=== PATIENT | female | born 1965 | race Caucasian/White ===

== ENCOUNTER 2024-01-04 05:41 | Day surgery (SDC) | payer MEDICAID ==
[2024-01-04] VITALS (14 sets, daily range): BP systolic 92–117; BP diastolic 53–74; PULSE 51–88; TEMP 97.3–97.9
[~2024-01-04] VITALS: Ht 162.6 cm; Wt 101.9 kg
[~2024-01-04 05:41] MED LIST: LR 1,000 ML IV SCH
[2024-01-04] MEDS ORDERED: Pregabalin 150 MG CAP PREOP X1 PO SCH (06:00)
[2024-01-04] MEDS ORDERED: Celecoxib 400 MG PREOP X1 PO SCH (06:00)
[2024-01-04] MEDS ORDERED: oxyCODONE ER (12-HR) 20 MG TAB PREOP X1 PO SCH (06:00)
[2024-01-04] MEDS ORDERED: Tranexamic Acid 1,000 MG/10 ML VIAL ONE (06:31)
[2024-01-04] MEDS ORDERED: Lidocaine PF 2% (20 MG/ML) 5 ML VIAL ONE (06:31)
[2024-01-04] MEDS ORDERED: NS 10 ML IV ONE (06:31)
[2024-01-04] MEDS ORDERED: Ondansetron 4 MG/2 ML VIAL ONE (06:31)
[2024-01-04] MEDS ORDERED: dexAMETHasone 10 MG/ML VIAL ONE (06:31)
[2024-01-04] MEDS ORDERED: fentaNYL 50 MCG/ML 2 ML VIAL ONE (06:32)
[2024-01-04] MEDS ORDERED: Midazolam 2 MG/2 ML VIAL ONE (06:32)
[2024-01-04] MEDS ORDERED: FLEXERIL 1010 MG/TAB PO (06:53)
[2024-01-04] MEDS ORDERED: CYMBALTA 30MG30 MG PO (06:54)
[2024-01-04] MEDS ORDERED: LYRICA 50MG CAP50 MG PO (06:54)
[2024-01-04] MEDS ORDERED: TOPAMAX 100MG100 M1 PO (06:54)
[2024-01-04] MEDS ORDERED: VOLTAREN 50MG T50 MG PO (06:55)
[2024-01-04] MEDS ORDERED: PROAIR HFA0.09 MG/AC IH (06:55)
[2024-01-04] MEDS ORDERED: FLONASE NASAL S16 GM NS (06:56)
[2024-01-04] MEDS ORDERED: FOLIC ACID0.4 MG PO (06:57)
[2024-01-04] MEDS ORDERED: VITAMIN C500 MG PO (06:57)
[2024-01-04] MEDS ORDERED: IRON TABLETS325 MG PO (06:58)
[2024-01-04] MEDS ORDERED: Cyclobenzaprine 10 MG TAB PO PRN (07:15)
[2024-01-04] MEDS ORDERED: Phenylephrine 10 MG/ML VIAL ONE (07:30)
[2024-01-04] MEDS ORDERED: Morphine 2 MG/1 ML VIAL [PACU/SDC ONLY] IV PRN (07:45)
[2024-01-04] MEDS ORDERED: Ondansetron 4 MG/2 ML VIAL IV PRN (07:45)
[2024-01-04] MEDS ORDERED: fentaNYL 50 MCG/ML 1 ML SYRINGE/VIAL [PACU/SDC ONLY] IV PRN (07:45)
[2024-01-04] MEDS ORDERED: HYDROmorphone 1 MG/1 ML SYRINGE [PACU/SDC ONLY] IV PRN (07:45)
[2024-01-04] MEDS ORDERED: Topical Skin Adhesive 1 EACH (1 ML) TOP ONE (08:00)
[2024-01-04] MEDS ORDERED: LR 1,000 ML IV ONE (08:06)
[2024-01-04] MEDS ORDERED: Pregabalin 50 MG CAP PO SCH (09:00)
[2024-01-04] MEDS ORDERED: Fluticasone Nasal 50 MCG/Spray 16 GM BOTTLE NS SCH (09:00)
[2024-01-04] MEDS ORDERED: DULoxetine 30 MG CAP PO SCH (09:00)
[2024-01-04] MEDS ORDERED: Topiramate 100 MG TAB PO SCH (09:00)
[2024-01-04] MEDS ORDERED: Morphine 4 MG/ML VIAL IV PRN (09:15)
[2024-01-04] MEDS ORDERED: Naloxone 0.4 MG/ML VIAL IV PRN (09:15)
[2024-01-04] MEDS ORDERED: Promethazine 50 MG/ML 1 ML VIAL IM PRN (09:15)
[2024-01-04] MEDS ORDERED: Magnes Hydrox (MOM) 80 MG/ML 30 ML CUP PO PRN (09:15)
[2024-01-04] MEDS ORDERED: oxyCODONE 5 MG TAB PO PRN (09:15)
[2024-01-04] MEDS ORDERED: Promethazine 25 MG TAB PO PRN (09:15)
[2024-01-04] MEDS ORDERED: traMADol 50 MG TAB PO PRN (09:15)
--- NOTE | 2024-01-04 09:40 | NUR ---
Pt transported form PACU to room in bed. Oriented Pt to room. A&Ox4. VSS. BPs are a little soft 90s/50s, but coming up per PACU nurse, Christine. S1S2. Clear lungs on 2L O2 via NC. ABD round, soft, non-tender with audible bowel sounds. Palpable pulses in all extremities. Pt able to move arms freely. Unable to feel anything on L leg, able to feel down to knee on R leg. TEDs and SCDs on bilaterally. Ice pack on L hip. No further needs at this time. Call light in reach and bed alarm on.
[2024-01-04] MEDS ORDERED: Albuterol 0.042% Neb Soln 1.25 MG/3 ML UD IH PRN (09:45)
[2024-01-04] MEDS ORDERED: Acetaminophen 500 MG TAB PO SCH (10:09)
--- NOTE | 2024-01-04 12:46 | NUR ---
ALEENA met with patient to complete initial assessment for discharge planning. Patient states she lives alone in [place] with her cat, sees Dr. Joanie Head as her PCP and uses [facility]. Patient lists her son Ruben as her emergency contact ([phone]). Patient has a walker, raised toilet seat and walk in shower. Patient denies having a DPOA assigned and declines to complete one at this time. Patient states she is scheduled for OP therapy at [facility] with first appointment on 01/10. Patient plans to return home with OP therapy at discharge Discharge plan: Home with OP therapy
[2024-01-04] MEDS ORDERED: ceFAZolin 2 G in Water For Injection,Sterile 20 ML IV SCH (14:30)
[2024-01-04] MEDS ORDERED: dexAMETHasone 10 MG/ML VIAL IV SCH (16:00)
--- NOTE | 2024-01-04 17:39 | NUR ---
report received from ISAC Gillespie at 1500, care assumed at this time. pt alert and oriented x4. pain controlled at this time. pt has no further needs, questions,, or concerns at this time. fall precautions in place, call light within reach. will continue to monitor.
[2024-01-04] MEDS ORDERED: Sennosides/Docusate 8.6-50 MG TAB PO SCH (21:00)
--- NOTE | 2024-01-04 22:53 | NUR ---
patient lying in bed, alert and oriented x4. denies chest pain and shortness of breath. IV in LH is patent, site CDi. Left hip foam gauze dressing CDI with ICE applied to site. pt ambulate to bathrrom with SBA assist and walker, steady gait. pt has no further needs, questions or concerns at this time. fall precautions in place, call light within reach. will continue to monitor.
[2024-01-05] VITALS (7 sets, daily range): BP systolic 108–121; BP diastolic 67–77; PULSE 56–74; TEMP 97.7–98.3
[2024-01-05 06:35] LABS: HEMOGLOBIN 11.9 g/dl (12.5-16.0)
[2024-01-05 06:36] LABS: HEMATOCRIT 35.9 % (37.0-47.0)
--- NOTE | 2024-01-05 08:40 | NUR ---
Patient doing well post op. Did well with breakfast. Pain medication regiment manages pain well. Patient hopeful to discharge home today.
[2024-01-05] MEDS ORDERED: Celecoxib 200 MG CAP PO SCH (09:00)
[2024-01-05] MEDS ORDERED: TYLENOL 500MG500 MG PO (09:01)
[2024-01-05] MEDS ORDERED: CELEBREX 200MG200 MG PO (09:01)
[2024-01-05] MEDS ORDERED: ULTRAM 50MG TAB50 MG PO (09:01)
[2024-01-05] MEDS ORDERED: ASPI325T6 PO (09:01)
[2024-01-05] MEDS ORDERED: ROXICODONE 55 MG/TAB PO (09:01)
--- NOTE | 2024-01-05 11:45 | NUR ---
Patient given all discharge education. Virgie Garcia aware patient had not picked up script prior to the Holiday and her pharmacy closed. She initally resent script to [facility] and had to again resent to [facility] due to the Holiday. Patient aware. Left hip dressing, redressed to brandonell. We reviewed hip precautions, patient aware reports having a therapy session prior to OR. Diet and activity reviewed, Patient denies questions or cocnerns. Wheeled out with all belonging, her son taking her home.
== END 2024-01-05 14:54 | disposition home or self-care (01) ==
LOC: SDCO 05:41 → SURG 09:40 → SDCO 10:35 → SURG 01-05 14:54 → SDCO 01-05 14:54
PROVIDERS: Physician Assistant
DX: M16.0 Bilateral primary osteoarthritis of hip (principal); F17.210 Nicotine dependence, cigarettes, uncomplicated; G47.33 Obstructive sleep apnea (adult) (pediatric)
CPT/HCPCS: OP; A6197; A9284; C1713; C1776; J0688; J0690; J1100; J2250; J2371; J2405; J2704; J3010; J7120